=== PATIENT | male | born 1970 | race African-American/Black ===

== ENCOUNTER 2020-10-05 20:48 | Emergency (ER) | payer OTHER ==
[~2020-10-05] VITALS: Ht 180.3 cm; Wt 99.8 kg
[~2020-10-05 20:48] MED LIST: CEPHALEXIN500 MG PO; NKM; TYLENOL #31 TAB PO; VICODIN 5-5001 EACH PO
[2020-10-05 20:55] VITALS: BP 137/90
[2020-10-05] MEDS ORDERED: VENTOLIN HFA18 GM INH (21:39)
[2020-10-05] MEDS ORDERED: Azithromycin 250mg tab ORAL ONE (22:00)
[2020-10-05] MEDS ORDERED: Lidocaine 1% MPF 10mg/ml 5ml INJ ONE (22:00)
[2020-10-05 22:10] VITALS: BP 133/86
--- NOTE | 2020-10-05 23:28 | Emergency Room Report ---
History of Present Illness General Chief Complaint: Male Urogenital Problems Source: Patient Present Illness HPI Disclaimer: Please note that this report is being documented using [employer] technology. This can lead to erroneous entry secondary to incorrect interpretation by the dictating instrument. HPI: 49-year-old male presents for evaluation of penile discharge. Patient reports a thick white discharge for the past 4 days. Denies testicular or penile pain. Denies bleeding, dysuria, hematuria, abdominal pain, nausea, vomiting. Denies fever or chills. Sexual partner is also in the ER requesting STI treatment and testing. Patient is also requesting asthma inhaler refill but denies shortness of breath, chest pain, cough at this time. He reports a cough intermittently over the past few days. Denies fever, chills, sore throat, nasal congestion. PMH: Asthma PSH: Reviewed Allergies: None Social Hx: Reviewed Allergies: Coded Allergies: No Known Allergies (Unverified , 07/30/12) COVID-19 Screening Contact w/high risk pt: No Experienced COVID-19 symptoms?: No COVID-19 Testing performed NUTRITION FACULTY MEMBER: No Nursing Documentation-PMH Past Medical History: No History, Except For Hx Asthma: Yes Review of Systems All Other Systems: negative except mentioned in HPI Physical Exam Vital Signs Date Time Temp Pulse Resp B/P (MAP) Pulse Ox O2 Delivery O2 Flow Rate FiO2 10/05/20 20:51 98.2 93 18 137/90 (106) 96 Room Air General: Awake and alert, no acute distress HEENT: NC/AT. EOMI. Resp: Normal work of breathing. No cough during exam. No wheezing, no crackles Abdomen: Soft, nontender, nondistended : Uncircumcised male. Minimal thick white discharge from meatus. No bleeding. Testes in anatomic position. No tenderness. Skin: Intact. No abrasions, laceration or rash over the exposed skin MSK: Normal tone and bulk. Moving all extremities. No obvious deformity. Neuro: Awake and alert. Mentating appropriately Medical Decision Making Diagnostic Impression: Primary Impression: STD exposure Additional Impressions: Medication refill Urethritis ER Course 49-year-old male presents with penile discharge. Concern for urethritis likely from sexually transmitted disease. Partner is also in ER requesting testing and treatment. Will treat empirically with ceftriaxone azithromycin. He will be referred to outpatient testing for HIV, HSV, hepatitis etc. Patient also requesting refill of his asthma inhaler which we will provide. Chest x-ray unremarkable. Does not require breathing treatments or interventions at this time. Discussed reasons to return to the emergency department. He understands and agrees with the treatment plan. Chest X-Ray Diagnostic Results Chest X-Ray Diagnostic Results : Chest X-Ray Ordered: Yes # of Views/Limited/Complete: 1 View Indication: Other - Cough EP Interpretation: Yes Interpretation: no consolidation, no effusion, no pneumothorax Impression: No acute disease Electronically Signed by: Electronically signed by Dr. Joce Jacobs MD Last Vital Signs Date Time Temp Pulse Resp B/P (MAP) Pulse Ox O2 Delivery O2 Flow Rate FiO2 10/05/20 20:51 98.2 93 18 137/90 (106) 96 Room Air Disposition: HOME, SELF-CARE Condition: Stable Scripts Albuterol Sulfate (VENTOLIN HFA) 18 Gm Hfa.aer.ad 1 PUFF INH EVERY 6 HOURS, #18 GM 0 Refills Prov: Joce Jacobs MD 10/05/20 Referrals: [facility] *Patients are seen by appointment only* [facility] Patient Instructions: Urethritis, Adult Additional Instructions: Please follow-up with one of the clinics listed here in your discharge paperwork for STD testing including HIV, hepatitis, herpes virus, syphilis, chlamydia, gonorrhea among others. Refrain from sexual contact until you obtain these r esults. Notify all sexual partners of any positive results. Return to the emergency department new or worsening symptoms. Please follow-up with your primary care doctor in the next 1 to 3 days to discuss this emergency department visit and for reevaluation. If you have any new or worsening symptoms please return to the emergency department for reevaluation. Please note that this report is being documented using [employer] technology. This can lead to erroneous entry secondary to incorrect interpretation by the dictating instrument. Joce Jacobs MD Oct 05, 2020 23:28
--- NOTE | 2020-10-06 19:04 | Diagnostic Imaging Report ---
Indication: Cough Technique: One view of the chest Comparison: none Findings: Lungs and pleural spaces are clear. Heart size is normal. Impression: No acute process
== END 2020-10-05 22:10 | disposition home or self-care (01) ==
LOC: EMR 21:34
DX: Z20.2 Contact with and (suspected) exposure to infections with a predominantly sexual mode of transmission (principal); Z76.0 Encounter for issue of repeat prescription; N34.2 Other urethritis; J45.909 Unspecified asthma, uncomplicated
CPT/HCPCS: 71045; 96372; J0696; Q0144; Z7502; 99283

== ENCOUNTER 2020-12-22 18:36 | Emergency (ER) | payer OTHER ==
[~2020-12-22] VITALS: Ht 180.3 cm; Wt 99.8 kg
[~2020-12-22 18:36] MED LIST changes: +VENTOLIN HFA18 GM INH
[2020-12-22 19:10] VITALS: BP 155/92
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
[2020-12-22] MEDS ORDERED: Methocarbamol 500mg tab ORAL ONE (19:45)
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
[2020-12-22] MEDS ORDERED: ROBAXIN-750750 MG PO (20:19)
[2020-12-22] MEDS ORDERED: TESSALON PERLE100 MG ORAL (20:19)
[2020-12-22] MEDS ORDERED: LIDODERM700 M1 TOPIC (20:19)
[2020-12-22] MEDS ORDERED: TYLENOL EXTRA500 MG ORAL (20:19)
[2020-12-22] MEDS ORDERED: ALBUTEROL SULF8.5 G1 INH (20:19)
[2020-12-22 20:21] VITALS: BP 152/92
--- NOTE | 2020-12-22 21:35 | NUR ---
ER DISCHARGE NOTE: Patient is cleared to be discharged per ERMD, pt is aox4, on room air, with stable vital signs. pt was given dc and prescription instructions, pt was able to verbalize understanding, pt id band removed. pt is able to ambulate with steady gait. pt took all belongings. Pt left in a private car
== END 2020-12-22 21:20 | disposition home or self-care (01) ==
LOC: EMR 19:00
DX: S16.1XXA Strain of muscle, fascia and tendon at neck level, initial encounter (principal); S39.012A Strain of muscle, fascia and tendon of lower back, initial encounter; R51.9 Headache, unspecified; R05 Cough; V89.2XXA Person injured in unspecified motor-vehicle accident, traffic, initial encounter
CPT/HCPCS: 99282